=== PATIENT | female | born 1945 | race Caucasian/White ===

== ENCOUNTER 2016-07-03 20:41 | Emergency (ER) | payer MEDICARE ==
[~2016-07-03] VITALS: Ht 166.4 cm; Wt 86.4 kg
[~2016-07-03 20:41] MED LIST: AMLO5TAB2 PO; HYDR25TA4 PO; LISI-567 PO; NEPA3DRO LEFT_EYE; NEPA3DRO RIGHT_EYE; POLY17PO6 PO; POTA10TA38 PO; PRED1DRO LEFT_EYE; PRED1DRO RIGHT_EYE; SENN1TAB90 PO
[2016-07-03 20:43] VITALS: BP 153/97; PULSE 81; RESP 16; O2SAT 100
--- NOTE | 2016-07-03 21:32 | ED.REPORT ---
HPI-General Illness Date of Service Jul 03, 2016 ED Provider: Dimitri Prabhakar MD Patient is a 71 year old female who presents to the ED complaining of back pain that began yesterday evening. She states that the pain begins below her shoulder blades and extends down to her lower back .She reports muscular cramping with any movement. The patient currently has family visiting, meaning that she has been cleaning more than usual. They have also rented a large van, which she has been climbing in and out of. She has been moving in many ways that are abnormal for her. She cannot identify a specific injury that caused her pain. Patient states that whenever she "overdoes it" she develops back pain. Patient denies having any tearing back pain. Patient denies numbness or weakness in her extremities, saddle numbness, bowel incontinence, urine incontinence, or pain in her extremities. Nursing Notes Stated Complaint: BACK PAIN Chief Complaint: Back Pain or Injury Nursing Notes Reviewed: Yes Allergies: Coded Allergies: No Known Allergies (Unverified , 07/03/16) Scheduled Amlodipine (Amlodipine) 5 Mg Tablet 5 MG PO DAILY Hydrochlorothiazide (Hydrochlorothiazide) 25 Mg Tablet 25 MG PO MoWeFr Lisinopril (Lisinopril) 20 Mg Tablet 20 MG PO DAILY Potassium Chloride (Potassium Chloride) 10 Meq Tab.er.prt 10 MEQ PO DAILY TAKE WITH FOOD Sennosides/Docusate Sodium (Senna-Docusate Sodium Tablet) 1 Each Tablet 1 EACH PO BID Scheduled PRN Methocarbamol (Robaxin-750) 750 Mg Tablet 1-2 TAB PO QID PRN PRN For Spasm Naproxen (Naprosyn) 500 Mg Tablet 500 MG PO BID PRN PRN For Pain Polyethylene Glycol 3350 (Miralax) 17 Gm Powd.pack 17 GM PO QID PRN PRN For Constipation General Time Seen by MD: 21:31 Chief Complaint Back pain Hx Obtained From: Patient Arrived By: Walk-in Sudden in Onset?: No Onset Occurred: Yesterday Symptom Duration: Since onset Location: : Back Quality: Painful Severity: Current: Moderate Severity: Maximum: Severe Recent Healthcare: No recent doctor visit, No recent hospitalization Similar Sx Previous: Yes Past Medical History Past Medical History hiatal hernia diverticular bleed Reports: Hypertension Past Surgical History cataract surgery Reports: , Cholecystectomy Smoking History Former Smoker Social History Alcohol Use: "Social" Other Social History: Good social support, , Local resident Ambulatory Status Independent Review of Systems Full Review of Systems Female: Denies: Incontinence Musculoskeletal: Reports: Back pain, Denies: Extremity pain Neurologic: Denies: Bladder dysfunction, Bowel dysfunction, Numbness, Weakness Complete sys rev & neg: except as marked. Physical Exam Vital Signs Vital Signs Date Time Temp Pulse Resp B/P Pulse Ox O2 Delivery O2 Flow Rate FiO2 07/03/16 22:40 70 133/75 98 Room Air 07/03/16 22:22 70 133/75 98 Room Air 07/03/16 20:43 36.2 81 16 153/97 100 Room Air Initial VS: Reviewed Head / Eyes: Atraumatic, Normocephalic, PERRL ENT: Conjunctiva normal, No scleral icterus Extremities: Vascular intact, Neuro intact Skin: Warm, Dry, No cyanosis Psychiatric: Mood/affect normal, Behavior normal, Normal thought content Neck: Supple, No midline vertebral tend Respiratory / Chest: Breath sounds NL, Breath sounds = bilat, No respiratory distress, No wheezing Cardiovascular: Heart rate NL, Regular rhythm, Heart sounds NL, No murmurs Abdomen: Soft, Non-tender, No guarding, No rebound, No palpable mass, No pulsatile mass Back: No midline vertebral tend Flank / Spine / Paraspinal: Positive: Lumbar paraspinal tend..., Thorac paraspinal tend... Muscle Spasm / ROM: Positive: Lumbar area spasm, Thoracic area spasm Neurologic: Oriented X3, Speech NL, No motor deficits, No sensory deficits, CN II - XII intact, Reflexes equal bilat Interpretation & Diagnostics X-Ray Chest Interpretation Chest Xray Interpretation: Impression: Mediastinum is normal. No acute cardiopulmonary process. View: Portable Interpretation / Wet Read by: Wet read ED physician X-Ray Interpretation Xray Interpretation: Impression: Degenerative disc disease and disc space loss. No acute injury. Study Performed: Lumbar Spine X-ray Interpretation / Wet Read by: Wet read ED physician Xray Interpretation: Impression: Degenerative disc disease and disc space loss. Retrolisthesis L1-L2. Cholecystectomy clips. No acute injury. Study Performed: Thoracic Spine X-ray Interpretation / Wet Read by: Wet read ED physician Re-Eval/Medical Decision Med Decision/Clinical Course 71-year-old with intermittent back pain and known degenerative disease, presents with an exacerbation of her back pain after excessive activity. Her presenting symptom of pain in between her shoulder blades raised concern for aneurysm, but her plain chest shows a clean mediastinum and no evidence of aneurysm. X-rays are back to show substantial degenerative disease with disc space loss and this retrolisthesis of L1 on L2 amounting to 3 mm. This may be a source of spinal stenosis with some point she has no symptoms of spinal stenosis at this time. She is much improved here after Toradol and Robaxin and will continue with Naprosyn and Robaxin at home. Heat rest massage advised. Source of Hx: Old records Time of Eval: 22:23 Patient Status: Condition improved Re-Evaluation/Progress Note: Rechecked the patient. Her pain is improved with medication. Her x-rays did not show any acute process. Patient understands and agrees with the plan to be discharged home. Discharge instructions and follow-up discussed. All questions were addressed. Return to the ED warnings given. Counseled Regarding: Diagnosis, Need for follow-up, When/why to return to ED Discharge & Departure Primary Impression: Back pain Back pain location: thoracic back pain Chronicity: acute Back pain laterality: bilateral Qualified Code: M54.6 - Pain in thoracic spine Disposition: Home Discharge Condition All VS Reviewed: Yes Condition: Stable Patient Instructions: Acute Low Back Pain (ED) Additional Instructions: Naprosyn twice daily with food for pain. Robaxin 1-2 tablets four times daily if needed for spasm Follow-up with your doctor in the office Rest heat massage. Return if any immediate issues, particularly numbness, weakness, or any other new symptoms of concern Referrals: Nelida Andre (PCP) Joanne Attestation Portions of this note were transcribed by Shereen Rowan. I, Dr. Shahid personally performed the history, physical exam and medical decision-making; I reviewed and confirmed the accuracy of the information in the transcribed note. Signed by: Joanne Moore, 07/03/2016 [id number] copies to: Nelida Andre Christopher W MD Jul 03, 2016 21:32 Shereen Rowan Jul 03, 2016 21:39
[2016-07-03] MEDS ORDERED: Ketorolac 30 mg/mL 2 mL Inj IM ONE (21:40)
[2016-07-03 22:22] VITALS: BP 133/75; PULSE 70; O2SAT 98
[2016-07-03] MEDS ORDERED: NAPR500T PO (22:27)
[2016-07-03] MEDS ORDERED: METH-313 PO (22:27)
[2016-07-03 22:40] VITALS: BP 133/75; PULSE 70; O2SAT 98
--- NOTE | 2016-07-04 08:36 | DRSVH ---
PROCEDURE: X-RAY LUMBAR SPINE, 2 OR 3 VIEW INDICATIONS: back pain TECHNIQUE: 3 views of the lumbar spine were acquired. COMPARISON: None. FINDINGS: Bones: 5 [id number] vertebrae are present. Grade I multilevel retrolisthesis. Multilevel disc degeneration and lower lumbar spine facet joint arthropathy. No vertebral body compression fractures . No suspicious bony lesions. Soft tissues: Overlying bowel gas pattern is normal. No suspicious soft tissue calcifications. IMPRESSION: Multilevel degenerative change. Dictated by: Wally Doyle [facility] Interpreted: Yennifer Meyers MD on 07/04/2016 at 8:34 Transcribed by: SHARLENE on 07/04/2016 at 8:36 Approved by: Yennifer Meyers MD, PhD on 07/04/2016 at 18:03
--- NOTE | 2016-07-04 08:37 | DRSVH ---
PROCEDURE: X-RAY THORACIC SPINE, 3 VIEWS INDICATIONS: back pain TECHNIQUE: 3 views of the thoracic spine were acquired. COMPARISON: None. FINDINGS: Bones: No fractures or dislocations. No suspicious bony lesions. 12 pairs of ribs are noted, and a ppear intact where visualized. Multilevel disc degeneration. Soft tissues: No paravertebral stripe thickening. Cholecystectomy clips. IMPRESSION: Mild multilevel disc degeneration. Dictated by: Wally Doyle [facility] Interpreted: Yennifer Meyers MD on 07/04/2016 at 8:36 Transcribed by: SHARLENE on 07/04/2016 at 8:36 Approved by: Yennifer Meyers MD, PhD on 07/04/2016 at 18:03
--- NOTE | 2016-07-04 08:38 | DRSVH ---
PROCEDURE: X-RAY CHEST ONE VIEW ([id number]) INDICATIONS: back pain TECHNIQUE: One view of the chest was acquired. COMPARISON: None. FINDINGS: Surgical changes and devices: Cholecystectomy clips. Lungs and pleura: No pleural effusions or pneumothorax. Medial bibasilar space opacities otherwise lungs are clear.. Mediastinum: Mediastinal contours appear normal. Heart size is normal. Bones and chest wall: No suspicious bony lesions. Overlying soft tissues appear unremarkable. IMPRESSION: Bibasilar atelectasis versus aspiration, pneumonia or scarring. Correlate clinically. Dictated by: Wally Doyle [facility] Interpreted: Yennifer Meyers MD on 07/04/2016 at 8:36 Transcribed by: SHARLENE on 07/04/2016 at 8:37 Approved by: Yennifer Meyers MD, PhD on 07/04/2016 at 18:03
== END 2016-07-03 22:41 | disposition home or self-care (01) ==
LOC: SED 20:41
DX: M54.6 Pain in thoracic spine (principal); I10 Essential (primary) hypertension; Z87.891 Personal history of nicotine dependence
CPT/HCPCS: 71010; 72072; 72100; 96372; 99284; J1885